=== PATIENT | female | born 1955 | race Caucasian/White ===

== ENCOUNTER 2016-05-16 09:33 | Inpatient (IN) | payer BC ==
--- NOTE | ~2016-05-16 | DS ---
Discharge Summary [facility] [address] [place]. [address] NAME: MARIBELL BRUNO : 51 STATUS : DIS IN PAT#: [id number] AGE: 60 ADM/REG DATE : 05/16/16 MR#: [id number] REPORT SERV DATE: 06/01/16 DICTATED BY: JIMMY BOBO DATE: 05/31/16 REPORT STATUS : Draft TRANSCRIBED BY: CHEYENNE DATE: 05/31/16 Data Collection from hospitalization DISCHARGE DIAGNOSIS(ES): 1. Relapsed lymphoma. 2. Anemia due to chemotherapy. 3. Pharyngitis. 4. Hypoxemia. 5. Leukocytosis - due to steroids and G-CSS. 6. Hypertension. 7. Glaucoma. CONSULTATIONS: Chase Butler M.D. PROCEDURES PERFORMED: None. MEDICATIONS: Zovirax 400 mg every 12 hours, ProAir two puffs via inhaler twice a day as needed, Elavil 25 mg at bedtime, Norvasc 5 mg every morning, Alphagan one drop twice a day, TUMS EX 1500 mg daily as needed, Colace 100 mg every morning, Breo Ellipta one puff via inhaler daily, Prinivil 10 mg twice a day, Imodium 2 mg before meals, Mag-Ox 800 mg daily, Lopressor 100 mg twice a day, probiotic one capsule every morning, Centrum tablets one tablet every morning, Zofran 8 mg every eight hours as needed, Compazine 10 mg every four hours as needed, bioidentical hormone one dose sublingually twice a day. CONDITION AT DISCHARGE: Stable. DISPOSITION: The patient was discharged home on a regular diet with activities as instructed. She would follow up with Dr. Chase Butler four to six weeks following discharge. She would follow up with me following discharge for a Neulasta injection. HOSPITAL COURSE: This is a 60-year-old female, who has relapsed large B-cell lymphoma after starting cycle 1 R-DHAP on 04/24/2016. She has Dr. Trevino on 04/18/2016, to discuss salvage chemotherapy and blood cell transplant management. The patient has a bulky mediastinal/hilar disease and no B symptoms stage IIA, but with positive flow cytometry of the bone marrow, but the bone marrow is histologically negative. She was going to undergo cycle #2 of DHAP. She received Rituxan in the office on 05/15/2016. She had no complaints of shortness of breath or chest pain. Her diarrhea had improved with Imodium as needed. She was admitted to the hospital at this time for further evaluation and treatment. Upon admission, cisplatin was decreased 25% due to acute renal insufficiency with cycle 1. Magnesium and creatinine would be monitored. The following day, she had no shortness of breath or chest pain. She did complain of having a sore throat, but was able to eat okay. She had no chest pain or shortness of breath. Cycle 2 DHAP continued. She was tolerating this well. White count was elevated due to recent steroids. She does have anemia felt due to chemotherapy. She would be transfused as needed. She has mild pharyngitis. On the , she did complain of some shortness of breath and a cough/wheeze. She had scant clear sputum production. She had no subscapular chest pain or pleurisy. She said she was feeling better that morning. Chemotherapy treatment continued. Her shortness of breath, hypoxemia, Discharge Summary [address] [address] NAME: MARIBELL BRUNO : 51 STATUS : DIS IN PAT#: [id number] AGE: 60 ADM/REG DATE : 05/16/16 MR#: [id number] REPORT SERV DATE: 06/01/16 DICTATED BY: JIMMY BOBO DATE: 05/31/16 REPORT STATUS : Draft TRANSCRIBED BY: CHEYENNE DATE: 05/31/16 and wheeze were suspected due to radiation reaction to cisplatin. Nebulizers and Lasix would be given as needed. Pharyngitis was improving. On the , she did complain of some shortness of breath. She had a nonproductive cough. She had no chest pain. Chemotherapy treatment continued. She does have bilateral lung infiltrates. BNP was elevated and echocardiogram was going to be checked. She was seen by Dr. Chase Butler regarding hypoxemia and pulmonary infiltrates. Her creatinine level was 1.56. White count was 22.6. It was felt that the patient likely had pulmonary edema secondary to the segundo-C based on the serial films and timing of the event with her chemotherapy. Oxygen would be provided as needed to maintain saturations in the 90-94% range. The patient felt like there was clinical benefit from the albuterol, so this was continued. Tessalon Perles would be provided for cough. We would hold on aggressive diuresis since this was more of a capillary leak. The patient already has some renal insufficiency after the cisplatin. The patient does have clinical symptoms of obstructive sleep apnea, which would be evaluated as an outpatient. Prinivil was held. Ionized calcium and phosphorus levels were going to be checked. Blood pressure was currently adequately controlled. Hydralazine would be given as needed for blood pressure more than 140. Echocardiogram demonstrated subc-[id number]-[id number] valvular disease of both aortic and mitral valve, which would need to be followed in the future. It was felt that we may need to change Arixtra with the rise in creatinine. This would be re-evaluated the following day. On 05/20/2016, she was feeling better overall. She was afebrile. Her breathing had minimally improved. O2 saturation was better. She still had a cough with occasional white sputum production. O2 was continued. Diuretics were held. Creatinine level had increased. The leukocytosis was felt secondary to Neupogen. Potassium supplementation was given. The next day, she seemed to be doing better, but still had a cough. The cough frequency had decreased. Oxygenation had improved. She completed cycle 2 DHAP. Creatinine level had improved as well. Diuretics remained on hold. Potassium supplementation continued. Discharge planning was performed. On 05/22/2016, her lungs were clear. She said she was feeling better. O2 saturation was 98% on 2 L. Acute hypoxemic respiratory failure was resolving. She would be followed as an outpatient regarding possible obstructive sleep apnea. Magnesium supplementation was given. Discharge instructions were provided. Due to her improved and stable condition, she was discharged home with the above-stated instructions. Information collected by: Vivi Berrios I submit the above information as my discharge summary. TG/MODL Jimmy Bobo M.D. / [id number] CC: Olivia Maravilla M.D.
--- NOTE | ~2016-05-16 | CN ---
Consultation Report [facility] [address] [place]. [address] NAME: MARIBELL JAY : 51 STATUS : ADM IN PAT#: [id number] AGE: 60 ADM/REG DATE : 05/16/16 MR#: [id number] REPORT SERV DATE: 05/19/16 DICTATED BY: CAROLINA BUTLER IV DATE: 05/19/16 REPORT STATUS : Draft TRANSCRIBED BY: MODBrooks DATE: 05/19/16 PULMONARY CONSULTATION. DATE OF CONSULTATION: 05/19/2016 REASON FOR REQUEST: Hypoxemia and pulmonary infiltrates. HISTORY OF PRESENT ILLNESS: History was obtained from the records and from the patient. Ms. Jay is a 60-year-old female with a history of recurrent large B-cell lymphoma, hypertension, glaucoma, now receiving her second cycle of R-DHAP with increased respiratory distress, hypoxemia, and pulmonary infiltrates. The patient was diagnosed with recurrent disease in 03/2016. As part of her treatment, she has received a chemotherapy regimen as noted with R-DHAP. She received her first cycle in April, which was complicated by hypoxemia, pulmonary infiltrates, and shortness of breath. Following the chest radiographs, there is a marked improvement in predominantly interstitial infiltrates with possibly some small pleural effusions that improved over two days and on a PICC line. X-ray on 05/16 demonstrated clearance of the pulmonary infiltrates. The patient received another cycle and within six hours of receiving her segundo-C developed increased shortness of breath, cough productive of white phlegm, and hypoxemia. Chest radiograph from the demonstrated some recurrence of the bilateral interstitial infiltrates, however, still is significantly improved from the original study in April. The patient had increased oxygen needs that have improved, however, she is concerned that this episode is more delayed than the previous episode. There were no exposure to any organic or chemical exposures prior to her presentation. There was no other medications provided. She denied any retrosternal or pleuritic chest pain. There was no fevers, chills, sweats, or hemoptysis. She is not on supplemental oxygen as an outpatient nor is she on bronchodilator medications. The patient does relate that she snores and her bed partner notes intermittent apneic episodes. She allows herself seven to eight hours of sleep every evening. Sleep is initially relatively restorative, however, she complains of sedentary hypersomnolence. PULMONARY HISTORY: Remarkable for no history of childhood asthma. She did have an episode of aspiration in her early 20s with no clear residual. She has had pneumonia in the past. She is a nonsmoker with no significant secondary smoke exposure. 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 PAST MEDICAL HISTORY: 1. Recurrent large B-cell lymphoma. 2. Hypertension. 3. Glaucoma. SURGERIES: She has had multiple laser surgeries for her eyes. She has had a right hip replacement, a hysterectomy with oophorectomy, an appendectomy, a left knee arthroscopy, and a rectal fissure repair. Consultation Report [place] [id number] [facility] [place]. [address] NAME: MARIBELL JAY : 51 STATUS : ADM IN [facility]#: [id number] AGE: 60 ADM/REG DATE : 05/16/16 MR#: [id number] REPORT SERV DATE: 05/19/16 DICTATED BY: CAROLINA BUTLER IV DATE: 05/19/16 REPORT STATUS : Draft TRANSCRIBED BY: CHEYENNE DATE: 05/19/16 ALLERGIES: DEMEROL, SHE IS INTOLERANT FROM LOW BLOOD PRESSURE, AND SHE HAS AN EGG ALLERGY. CURRENT MEDICATIONS: The patient is on Arixtra 2.5 mg subcu daily, Benadryl 25 mg as directed, brimonidine ophthalmologic solution one drop both eyes daily, Colace 100 mg daily, Elavil 25 mg at bedtime, Florastor one daily, Granix 300 mcg daily, Imodium before meals, Lopressor 100 mg twice a day, Mag-Ox 400 mg daily, MD Curry four times a day, Norvasc 5 mg daily, Prinivil 10 mg twice a day, Protonix 40 mg IV daily, Proventil every four hours, Senokot two daily, multivitamin daily, Tylenol daily, Zovirax 400 mg every 12 hours. SOCIAL HISTORY: Remarkable for no tobacco use. She has rare social alcohol use and she smoked some marijuana as a young adult. She has a partner with no children. FAMILY HISTORY: Remarkable for mother with breast cancer, hypothyroidism, and cardiovascular disease; father with cardiovascular disease; maternal grandmother who had leukemia; maternal grandfather who had congestive heart failure; and paternal grandfather who had a stroke. REVIEW OF SYSTEMS: 14 systems reviewed and pertinent positives noted above. PHYSICAL EXAMINATION: GENERAL: This is a pleasant, moderately overweight, late middle-aged, female, in no current distress. She is wearing supplemental oxygen. VITAL SIGNS: Temperature is 98.3, pulse is 91, respiratory rate is 18, saturations are 96% on 5 L, blood pressure is 124/67. HEENT: The patient is normocephalic, atraumatic. Extraocular movements are intact. Pupils react to light. Sclerae and conjunctivae normal. She has a nasal cannula in place. She has a Mallampati II to III airway with narrowing of the posterior pharyngeal space and elongated soft palate. No other gross oral lesions are noted. NECK: Without any palpable lymphadenopathy or thyromegaly. CHEST: The patient has anterior inspiratory crackles and squeaks. There are some inspiratory crackles posteriorly at the base that causes a cough with deep inspiratory efforts. No wheezes or rhonchi are noted. CARDIOVASCULAR: Jugular venous pulsations only appear to be approximately 6 cm. She has 2+ carotid upstrokes. No obvious bruit. She has regular S1, S2 with no clear murmur or S3. Peripheral pulses are intact. ABDOMEN: Surgical scars noted, protuberant, soft. There are hypoactive bowel sounds. There is no palpable hepatosplenomegaly or masses. EXTREMITIES: Demonstrate a PICC in her left arm. There is no cyanosis, clubbing, or palpable cords. NEUROLOGIC: The patient is able to move all extremities. Strength is 5/5 and sensation intact to light touch. LABORATORY STUDIES: Review of serial chest x-rays demonstrates infiltrates in April that resolved on the 05/16 study with a recurrent of the interstitial infiltrate on the 05/18 Consultation Report [place] [id number] [facility] [place]. [address] NAME: MARIBELL JAY : 51 STATUS : ADM IN [facility]#: [id number] AGE: 60 ADM/REG DATE : 05/16/16 MR#: [id number] REPORT SERV DATE: 05/19/16 DICTATED BY: CAROLINA BUTLER IV DATE: 05/19/16 REPORT STATUS : Draft TRANSCRIBED BY: CHEYENNE DATE: 05/19/16 study. Current CBC; hemoglobin 9.8, hematocrit 27.5, platelet count was 308,000, white count 22.6. Chemistries: Sodium 139, potassium 3.9, chloride 103, bicarb 22, BUN 45, creatinine 1.56, glucose 134, calcium is 6.8, and magnesium is 2. BNP was 925. ASSESSMENT AND PLAN: 1. Respiratory. The patient likely has pulmonary edema secondary to the segundo-C based on the serial films and timing of the event with her chemotherapy. Oxygen will be provided as needed to maintain saturation in the 90% to 94% range. The patient feels there is clinical benefit from the albuterol, so will continue q.4 hours while awake and q.2 hours as needed. A Tessalon Perles will be provided for cough. I would hold aggressive diuresis since this is more of a capillary leak, and the patient already has some renal insufficiency after the cisplatin. The patient does have clinical symptoms of obstructive sleep apnea, which I would evaluate as an outpatient. 2. Renal. We will hold the patient's Prinivil with a rise in creatinine. Ionized calcium and phos will be obtained tomorrow. 3. Cardiovascular. Blood pressure is currently adequately controlled. We will hold Prinivil and give hydralazine as needed for blood pressures more than 140. We will continue the other medications. She does have the echocardiogram demonstrating mild-to- moderate valvular disease of both aortic and mitral valve, which will need to be followed in the future. 4. Hematologic. May need to change Arixtra with a rise in creatinine, though will evaluate tomorrow. Thank you for consulting us. We will follow the patient with you. I personally discussed my opinion with Dr. Soriano. ASHLY/MODL Carolina Butler IV, M.D. / [id number] CC: Olivia Maravilla M.D.
[~2016-05-16 09:33] MED LIST: ADVIL PO; ALPHAGAN OPH; ALPHAGAN P0.1 % OPH; AMB5 PO; AMIT25 PO; BACDS PO; BIOIDENTICAL HORMONE SL; CEFT5 PO; DEX4 PO; DEXAMETHASONE OPH; DHE1; DHE1 PO; DSS PO; HERBAL SUPPLEMENT PO; LOP100 PO; LOP50 PO; MAGIC MOUTHWASH PO; MAX25 PO; MULTIPLE VIT PO; NORV5 PO; OTC STOOL SOFTENER PO; PEP20 PO; PR25 PO; PRIN10 PO; PRIN20 PO; PROAIR HFA INH; PROBIOTIC PO; PROVHFA INH; ZOFRAN ODT4 MG PO; ZOVIRAX400 MG PO; [UNRECOGNIZED DRUG - CODE] PO; [UNRECOGNIZED DRUG - OTHER] PO; [UNRECOGNIZED DRUG - OTHER] PO; [UNRECOGNIZED DRUG - OTHER] PO
[2016-05-16 11:25] LABS: HEMATOCRIT 30.1 % (36.0-48.0); HEMOGLOBIN 10.1 g/dL (12.0-16.0); MANUAL DIFF YES %; MEAN CORPUS HGB CONC 33.6 g/dL (32.0-36.0); MEAN CORPUSCULAR HEMOGLOB 29.7 pg (26.0-34.0); MEAN CORPUSCULAR VOLUME 88.5 fL (80-100); MEAN PLATELET VOLUME 10.1 fL (9.2-13.0); PLATELET COUNT 333 10/3/uL (150-400); RBC DISTRIBUTION WIDTH 13.5 % (12.0-16.0); WHITE BLOOD CELLS 23.5 10/3/uL (4.5-10.5)
[2016-05-16 11:35] LABS: BUN (BLOOD UREA NITROGEN) 19 MG/DL (6-23); CHLORIDE, SERUM 105 MMOL/L (96-112); CO2 (CARBON DIOXIDE) 26 MMOL/L (24-34); CREATININE 0.95 MG/DL (0.55-1.02); GFR AFRICAN AMERICAN 74 ML/MIN (>=60); GFR NON AFRICAN AMERICAN 64 ML/MIN (>=60); GLUCOSE, SERUM 104 MG/DL (60-99); POTASSIUM, SERUM 4.1 MMOL/L (3.5-5.3); SODIUM, SERUM 140 MMOL/L (135-148)
[2016-05-16 11:50] LABS: BAND NEUTROPHILS 10 %; BASOPHILS 2 %; BASOPHILS ABSOLUTE (CALC) 0.71 10/3/uL (0.0-0.16); IMMATURE GRANS ABSOLUTE (CALC) 0.71 10/3/uL (0.0-0.11); LYMPHOCYTES 7 %; LYMPHOCYTES ABSOLUTE (CALC) 1.65 10/3/uL (0.67-4.30); METAMYELOCYTES 3 %; MONOCYTES 8 %; MONOCYTES ABSOLUTE (CALC) 1.88 10/3/uL (0.21-1.20); NEUTROPHILS ABSOLUTE (CALC) 18.57 10/3/uL (2.02-8.40); SEGMENTED NEUTROPHIL (0) 70 %; TOTAL NUCLEATED CELLS 100
[2016-05-16 11:51] LABS: PLATELET ESTIMATE ADQ (ADEQUATE); RBC MORPHOLOGY NORM (NORMAL)
[2016-05-16] MEDS ORDERED: MAGOX4 PO (11:56)
[2016-05-16] MEDS ORDERED: IMOD PO (11:57)
[2016-05-16] MEDS ORDERED: RITUXAN IV (11:59)
[2016-05-16] MEDS ORDERED: ZOFRAN8 PO (12:00)
[2016-05-16] MEDS ORDERED: COMP10B PO (12:00)
[2016-05-16] MEDS ORDERED: BIOIDENTICAL HORMONE SL (12:02)
[2016-05-16] MEDS ORDERED: ZOVIRAX400 MG PO (12:03)
[2016-05-16] MEDS ORDERED: PROAIR HFA INH (12:04)
[2016-05-16] MEDS ORDERED: ALPHAGAN P0.1 % OPH (12:05)
[2016-05-16] MEDS ORDERED: AMIT25 PO (12:05)
[2016-05-16] MEDS ORDERED: DSS PO (12:07)
[2016-05-16] MEDS ORDERED: PRIN10 PO (12:08)
[2016-05-16] MEDS ORDERED: LOP50 PO (12:09)
[2016-05-16] MEDS ORDERED: NORV5 PO (12:09)
[2016-05-16] MEDS ORDERED: PROBIOTIC PO (12:10)
[2016-05-16] MEDS ORDERED: CENTRUM PO (12:10)
[2016-05-16] MEDS ORDERED: TUMS E-X750 M2 PO (12:11)
[2016-05-16] MEDS ORDERED: CHEMO THERAPY IV (12:14)
[2016-05-16] MEDS ORDERED: LEVAQUIN PO (12:19)
[2016-05-17 04:31] LABS: BUN (BLOOD UREA NITROGEN) 20 MG/DL (6-23); CHLORIDE, SERUM 107 MMOL/L (96-112); CO2 (CARBON DIOXIDE) 25 MMOL/L (24-34); GFR AFRICAN AMERICAN 70 ML/MIN (>=60); GFR NON AFRICAN AMERICAN 60 ML/MIN (>=60); POTASSIUM, SERUM 4.5 MMOL/L (3.5-5.3); SODIUM, SERUM 140 MMOL/L (135-148)
[2016-05-17 04:32] LABS: HEMATOCRIT 27.7 % (36.0-48.0); HEMOGLOBIN 9.6 g/dL (12.0-16.0); MEAN CORPUS HGB CONC 34.7 g/dL (32.0-36.0); MEAN CORPUSCULAR HEMOGLOB 30.5 pg (26.0-34.0); MEAN CORPUSCULAR VOLUME 87.9 fL (80-100); MEAN PLATELET VOLUME 9.9 fL (9.2-13.0); PLATELET COUNT 319 10/3/uL (150-400); RBC DISTRIBUTION WIDTH 13.4 % (12.0-16.0); RED CELL COUNT 3.15 10/6/uL (4.0-5.6)
[2016-05-17 04:33] LABS: MANUAL DIFF YES %; WHITE BLOOD CELLS 30.5 10/3/uL (4.5-10.5)
[2016-05-17 04:37] LABS: GLUCOSE, SERUM 164 MG/DL (60-99)
[2016-05-17 05:00] LABS: BAND NEUTROPHILS 5 %; IMMATURE GRANS ABSOLUTE (CALC) 1.53 10/3/uL (0.0-0.11); METAMYELOCYTES 5 %; MONOCYTES 4 %; MONOCYTES ABSOLUTE (CALC) 1.22 10/3/uL (0.21-1.20); NEUTROPHILS ABSOLUTE (CALC) 27.76 10/3/uL (2.02-8.40); PLATELET ESTIMATE ADQ (ADEQUATE); RBC MORPHOLOGY NORM (NORMAL); SEGMENTED NEUTROPHIL (0) 86 %; TOTAL NUCLEATED CELLS 100
[2016-05-18 04:17] LABS: HEMATOCRIT 27.9 % (36.0-48.0); HEMOGLOBIN 9.4 g/dL (12.0-16.0); MEAN CORPUS HGB CONC 33.7 g/dL (32.0-36.0); MEAN CORPUSCULAR VOLUME 89.1 fL (80-100); MEAN PLATELET VOLUME 10.2 fL (9.2-13.0); PLATELET COUNT 337 10/3/uL (150-400); RBC DISTRIBUTION WIDTH 13.8 % (12.0-16.0); RED CELL COUNT 3.13 10/6/uL (4.0-5.6)
[2016-05-18 04:20] LABS: MANUAL DIFF YES %; WHITE BLOOD CELLS 38.4 10/3/uL (4.5-10.5)
[2016-05-18 04:42] LABS: BUN (BLOOD UREA NITROGEN) 28 MG/DL (6-23); CALCIUM, SERUM 7.5 MG/DL (8.5-10.4); CHLORIDE, SERUM 107 MMOL/L (96-112); CO2 (CARBON DIOXIDE) 25 MMOL/L (24-34); CREATININE 1.19 MG/DL (0.55-1.02); GFR AFRICAN AMERICAN 57 ML/MIN (>=60); GFR NON AFRICAN AMERICAN 49 ML/MIN (>=60); GLUCOSE, SERUM 177 MG/DL (60-99); SODIUM, SERUM 140 MMOL/L (135-148)
[2016-05-18 05:24] LABS: BAND NEUTROPHILS 4 %; MONOCYTES 1 %; MONOCYTES ABSOLUTE (CALC) 0.38 10/3/uL (0.21-1.20); NEUTROPHILS ABSOLUTE (CALC) 38.02 10/3/uL (2.02-8.40); PLATELET ESTIMATE ADQ (ADEQUATE); RBC MORPHOLOGY NORM (NORMAL); SEGMENTED NEUTROPHIL (0) 95 %; TOTAL NUCLEATED CELLS 100
[2016-05-19 06:46] LABS: HEMATOCRIT 27.5 % (36.0-48.0); HEMOGLOBIN 9.8 g/dL (12.0-16.0); MEAN CORPUSCULAR HEMOGLOB 31.1 pg (26.0-34.0); MEAN CORPUSCULAR VOLUME 87.3 fL (80-100); MEAN PLATELET VOLUME 9.8 fL (9.2-13.0); PLATELET COUNT 308 10/3/uL (150-400); RBC DISTRIBUTION WIDTH 13.9 % (12.0-16.0); RED CELL COUNT 3.15 10/6/uL (4.0-5.6)
[2016-05-19 06:48] LABS: MANUAL DIFF YES %; MEAN CORPUS HGB CONC 35.6 g/dL (32.0-36.0); WHITE BLOOD CELLS 22.6 10/3/uL (4.5-10.5)
[2016-05-19 07:01] LABS: CHLORIDE, SERUM 103 MMOL/L (96-112); CO2 (CARBON DIOXIDE) 22 MMOL/L (24-34); CREATININE 1.56 MG/DL (0.55-1.02); GFR AFRICAN AMERICAN 41 ML/MIN (>=60); GFR NON AFRICAN AMERICAN 35 ML/MIN (>=60); POTASSIUM, SERUM 3.9 MMOL/L (3.5-5.3); SODIUM, SERUM 139 MMOL/L (135-148)
[2016-05-19 07:03] LABS: BUN (BLOOD UREA NITROGEN) 45 MG/DL (6-23); CALCIUM, SERUM 6.8 MG/DL (8.5-10.4); GLUCOSE, SERUM 134 MG/DL (60-99)
[2016-05-19 07:33] LABS: BAND NEUTROPHILS 11 %; LYMPHOCYTES 3 %; LYMPHOCYTES ABSOLUTE (CALC) 0.68 10/3/uL (0.67-4.30); MONOCYTES 5 %; MONOCYTES ABSOLUTE (CALC) 1.13 10/3/uL (0.21-1.20); NEUTROPHILS ABSOLUTE (CALC) 20.79 10/3/uL (2.02-8.40); PLATELET ESTIMATE ADQ (ADEQUATE); RBC MORPHOLOGY NORM (NORMAL); SEGMENTED NEUTROPHIL (0) 81 %; TOTAL NUCLEATED CELLS 100
[2016-05-20 05:22] LABS: ALKALINE PHOSPHATASE 88 U/L (45-117); BUN (BLOOD UREA NITROGEN) 47 MG/DL (6-23); CHLORIDE, SERUM 100 MMOL/L (96-112); CO2 (CARBON DIOXIDE) 26 MMOL/L (24-34); CREATININE 1.61 MG/DL (0.55-1.02); GFR AFRICAN AMERICAN 39 ML/MIN (>=60); GFR NON AFRICAN AMERICAN 34 ML/MIN (>=60); GLUCOSE, SERUM 124 MG/DL (60-99); POTASSIUM, SERUM 3.9 MMOL/L (3.5-5.3); SGOT(AST) 31 U/L (5-40); SGPT(ALT) 24 U/L (5-65); SODIUM, SERUM 140 MMOL/L (135-148); TOTAL PROTEIN 6.2 G/DL (6.0-8.5)
[2016-05-20 05:29] LABS: A/G RATIO 0.9 (0.7-1.9); CALCIUM, SERUM 6.5 MG/DL (8.5-10.4); GLOBULIN 3.2 G/DL (2.5-4.1); PHOSPHORUS, SERUM 3.4 MG/DL (2.5-4.5); TOTAL BILIRUBIN 0.5 MG/DL (0-1.2)
[2016-05-20 05:34] LABS: HEMATOCRIT 27.6 % (36.0-48.0); HEMOGLOBIN 9.8 g/dL (12.0-16.0); MEAN CORPUS HGB CONC 35.5 g/dL (32.0-36.0); MEAN CORPUSCULAR HEMOGLOB 30.8 pg (26.0-34.0); MEAN CORPUSCULAR VOLUME 86.8 fL (80-100); MEAN PLATELET VOLUME 10.5 fL (9.2-13.0); PLATELET COUNT 267 10/3/uL (150-400); RBC DISTRIBUTION WIDTH 13.9 % (12.0-16.0); RED CELL COUNT 3.18 10/6/uL (4.0-5.6)
[2016-05-20 05:35] LABS: CALCIUM IONIZED 3.71 MG/DL (3.80-4.80)
[2016-05-20 05:37] LABS: MANUAL DIFF YES %; WHITE BLOOD CELLS 89.3 10/3/uL (4.5-10.5)
[2016-05-20 06:26] LABS: B NATRIURETIC PEPTIDE (BNP) 686.6 PG/ML (< 100.0)
[2016-05-20 06:27] LABS: BAND NEUTROPHILS 6 %; MONOCYTES 1 %; MONOCYTES ABSOLUTE (CALC) 0.89 10/3/uL (0.21-1.20); NEUTROPHILS ABSOLUTE (CALC) 88.41 10/3/uL (2.02-8.40); PLATELET ESTIMATE ADQ (ADEQUATE); RBC MORPHOLOGY NORM (NORMAL); SEGMENTED NEUTROPHIL (0) 93 %; TOTAL NUCLEATED CELLS 100
[2016-05-21 05:58] LABS: HEMATOCRIT 27.4 % (36.0-48.0); HEMOGLOBIN 9.7 g/dL (12.0-16.0); MEAN CORPUS HGB CONC 35.4 g/dL (32.0-36.0); MEAN CORPUSCULAR HEMOGLOB 31.1 pg (26.0-34.0); MEAN CORPUSCULAR VOLUME 87.8 fL (80-100); MEAN PLATELET VOLUME 10.4 fL (9.2-13.0); PLATELET COUNT 208 10/3/uL (150-400); RBC DISTRIBUTION WIDTH 14.2 % (12.0-16.0); RED CELL COUNT 3.12 10/6/uL (4.0-5.6)
[2016-05-21 05:59] LABS: MANUAL DIFF YES %
[2016-05-21 06:11] LABS: ALKALINE PHOSPHATASE 98 U/L (45-117); BUN (BLOOD UREA NITROGEN) 42 MG/DL (6-23); CHLORIDE, SERUM 100 MMOL/L (96-112); CO2 (CARBON DIOXIDE) 31 MMOL/L (24-34); CREATININE 1.44 MG/DL (0.55-1.02); GFR AFRICAN AMERICAN 45 ML/MIN (>=60); GFR NON AFRICAN AMERICAN 39 ML/MIN (>=60); GLOBULIN 2.9 G/DL (2.5-4.1); GLUCOSE, SERUM 89 MG/DL (60-99); PHOSPHORUS, SERUM 3.4 MG/DL (2.5-4.5); POTASSIUM, SERUM 3.2 MMOL/L (3.5-5.3); SGOT(AST) 29 U/L (5-40); SGPT(ALT) 25 U/L (5-65); SODIUM, SERUM 141 MMOL/L (135-148); TOTAL BILIRUBIN 0.5 MG/DL (0-1.2); TOTAL PROTEIN 5.9 G/DL (6.0-8.5)
[2016-05-21 06:12] LABS: CALCIUM, SERUM 6.7 MG/DL (8.5-10.4)
[2016-05-21 06:25] LABS: BAND NEUTROPHILS 2 %; SEGMENTED NEUTROPHIL (0) 98 %; TOTAL NUCLEATED CELLS 100
[2016-05-21 06:26] LABS: PLATELET ESTIMATE ADQ (ADEQUATE); RBC MORPHOLOGY NORM (NORMAL)
[2016-05-22 06:10] LABS: HEMATOCRIT 24.9 % (36.0-48.0); MEAN CORPUS HGB CONC 36.1 g/dL (32.0-36.0); MEAN CORPUSCULAR HEMOGLOB 31.7 pg (26.0-34.0); MEAN CORPUSCULAR VOLUME 87.7 fL (80-100); MEAN PLATELET VOLUME 10.5 fL (9.2-13.0); RBC DISTRIBUTION WIDTH 13.9 % (12.0-16.0); RED CELL COUNT 2.84 10/6/uL (4.0-5.6)
[2016-05-22 06:12] LABS: MANUAL DIFF YES %; PLATELET COUNT 131 10/3/uL (150-400)
[2016-05-22 06:25] LABS: ALBUMIN 2.7 G/DL (3.5-5.0); ALKALINE PHOSPHATASE 95 U/L (45-117); CHLORIDE, SERUM 103 MMOL/L (96-112); CO2 (CARBON DIOXIDE) 27 MMOL/L (24-34); CREATININE 1.22 MG/DL (0.55-1.02); GFR AFRICAN AMERICAN 55 ML/MIN (>=60); GFR NON AFRICAN AMERICAN 47 ML/MIN (>=60); GLOBULIN 2.7 G/DL (2.5-4.1); GLUCOSE, SERUM 84 MG/DL (60-99); POTASSIUM, SERUM 3.4 MMOL/L (3.5-5.3); SGOT(AST) 21 U/L (5-40); SGPT(ALT) 24 U/L (5-65); SODIUM, SERUM 141 MMOL/L (135-148); TOTAL BILIRUBIN 0.7 MG/DL (0-1.2); TOTAL PROTEIN 5.4 G/DL (6.0-8.5)
[2016-05-22 06:26] LABS: BUN (BLOOD UREA NITROGEN) 37 MG/DL (6-23)
[2016-05-22 08:06] LABS: BAND NEUTROPHILS 6 %; MONOCYTES 1 %; MONOCYTES ABSOLUTE (CALC) 0.67 10/3/uL (0.21-1.20); NEUTROPHILS ABSOLUTE (CALC) 66.33 10/3/uL (2.02-8.40); PLATELET ESTIMATE DEC (ADEQUATE); SEGMENTED NEUTROPHIL (0) 93 %; TOTAL NUCLEATED CELLS 100
[2016-05-22 08:07] LABS: RBC MORPHOLOGY NORM (NORMAL)
[2016-05-22] MEDS ORDERED: MAGOX4 PO (11:12)
[2016-05-22] MEDS ORDERED: BREO ELLIPTA 21 EACH INH (11:19)
[2016-06-15] MEDS ORDERED: IND25 PO (09:16)
== END 2016-05-22 15:45 | disposition home or self-care (01) | DRG 846 ==
LOC: 4EA 09:33
PROVIDERS: Internal Medicine Critical Care Medicine; Internal Medicine Hematology & Oncology
DX: Z51.11 Encounter for antineoplastic chemotherapy (principal); J96.01 Acute respiratory failure with hypoxia; C83.32 Diffuse large B-cell lymphoma, intrathoracic lymph nodes; N17.9 Acute kidney failure, unspecified; D64.9 Anemia, unspecified; J02.9 Acute pharyngitis, unspecified; E83.42 Hypomagnesemia; J70.2 Acute drug-induced interstitial lung disorders; T45.1X5A Adverse effect of antineoplastic and immunosuppressive drugs, initial encounter
CPT/HCPCS: 71020; 80048; 80053; 80069; 82330; 83735; 83880; 84100; 85025; 93306; 94640; A9270-GY; C9113; J0610; J1447; J1652; J1940; J2405; J2997; J9060; J9100

== ENCOUNTER 2016-06-16 06:43 | Day surgery (SDC) | payer BC ==
--- NOTE | ~2016-06-16 | OP ---
Record Of Operation [facility] [address] [place]. [address] NAME: MARIBELL BRUNO : 51 STATUS : [facility]#: [id number] AGE: 60 ADM/REG DATE : 06/16/16 MR#: [id number] REPORT SERV DATE: 06/16/16 DICTATED BY: CAROLINA BUTLER IV DATE: 06/16/16 REPORT STATUS : Draft TRANSCRIBED BY: CHEYENNE DATE: 06/16/16 DATE OF PROCEDURE: 06/16/2016 BRONCHOSCOPY PROCEDURE NOTE PREOPERATIVE DIAGNOSIS: B-cell lymphoma with infiltrate in the left lower lobe presumed to be pneumonia, however, with persistent fevers after treatment with antibiotics. POSTOPERATIVE DIAGNOSIS: B-cell lymphoma with infiltrate in the left lower lobe presumed to be pneumonia, however, with persistent fevers after treatment with antibiotics with initial review of the slide nondiagnostic material. PROCEDURE: Bronchoscopy with radial EBUS, BAL, brush and biopsies of a right persistent left lower lobe infiltrate with persistent fevers and B-cell lymphoma. CONTRAINDICATIONS: None. CONSENT: The risks, benefits, and alternative evaluations were discussed with the patient. Possible complications reviewed to include air leak around the lung, bleeding, infection, low oxygen level, and even potentially . The patient agreed to procedure with the consent signed, and witnessed on the front of the chart. PREOPERATIVE LABS: The patient's INR was 1.1. The platelet count was 225,000. METHOD: The patient was taken to the bronchoscopy suite of [facility] and prepared in the usual manner. Anesthesiology was consulted to provide airway management as well as sedation. This was provided via an LMA airway. Once the patient was sedated and the airway was secured, the bronchoscope was advanced down the LMA without difficulty. The LMA was positioned appropriately over the vocal cords. A total of 20 mL of 2% lidocaine solution was used throughout the procedure to provide airway anesthesia. The airway mucosa was diffusely boggy and edematous. There was a fair dynamic narrowing of the airways with coughing. There was normal anatomy with all airways patent out beyond the fourth generation bronchi. After all airways were evaluated, the bronchoscope was advanced down to the posterior segment of the left lower lobe. Using radial EBUS, the appropriate subsegments were located. A BAL was then performed instituting 180 mL with return of over 60 mL of slightly sanguineous material. This was sent for cultures as well as cytology. A brush was then provided in the two subsegments in the appropriate area and sent for cytology. Initial review demonstrated nondiagnostic material with benign bronchial mucosa in histiocytes though no obvious inflammatory cells. All procedures were performed under fluoroscopic guidance. Two biopsies were obtained in the two different subsegments in the appropriate area and sent for culture. Additional five more biopsies were obtained in these two subsegments and sent for cytology. The patient tolerated the procedure well with adequate oxygenation. The repeat BAL was performed at the conclusion of the procedure and sent for cytology as well as for culture. Fluoroscopy failed to demonstrate any pneumothorax. The patient tolerated the procedure well. She will be moved to recovery. The family member will be made aware of the preliminary results. Record Of [address] [place]. [address] NAME: MARIBELL BRUNO : 51 STATUS : [facility] PAT#: [id number] AGE: 60 ADM/REG DATE : 06/16/16 MR#: [id number] REPORT SERV DATE: 06/16/16 DICTATED BY: CAROLINA BUTLER IV DATE: 06/16/16 REPORT STATUS : Draft TRANSCRIBED BY: CHEYENNE DATE: 06/16/16 ASHLY/CHEYENNE Carolina Butler IV, M.D. / [id number] CC: Olivia Dacosta IV, M.D.
[~2016-06-16 06:43] MED LIST changes: +BREO ELLIPTA 21 EACH INH; +CENTRUM PO; +CHEMO THERAPY IV; +COMP10B PO; +IMOD PO; +IND25 PO; +LEVAQUIN PO; +MAGOX4 PO; +RITUXAN IV; +TUMS E-X750 M2 PO; +ZOFRAN8 PO
[2016-06-16 07:02] LABS: BASOPHILS 0.9 %; BASOPHILS ABSOLUTE 0.06 10/3/uL (0.0-0.16); EOSINOPHILS ABSOLUTE 0.28 10/3/uL (0.0-0.53); HEMOGLOBIN 9.3 g/dL (12.0-16.0); IMMATURE GRANULOCYTES 1.1 %; IMMATURE GRANULOCYTES ABSOLUTE 0.08 10/3/uL (0.0-0.11); LYMPHOCYTES 15.5 %; LYMPHOCYTES ABSOLUTE 1.09 10/3/uL (0.67-4.30); MEAN CORPUS HGB CONC 34.4 g/dL (32.0-36.0); MEAN CORPUSCULAR HEMOGLOB 31.4 pg (26.0-34.0); MONOCYTES 13.5 %; MONOCYTES ABSOLUTE 0.95 10/3/uL (0.21-1.20); NEUTROPHILS ABSOLUTE 4.56 10/3/uL (2.02-8.40); RBC DISTRIBUTION WIDTH 15.2 % (12.0-16.0); RED CELL COUNT 2.96 10/6/uL (4.0-5.6)
[2016-06-16 07:07] LABS: MANUAL DIFF NO %; MEAN CORPUSCULAR VOLUME 91.2 fL (80-100); PLATELET COUNT 225 10/3/uL (150-400)
[2016-06-16 07:16] LABS: BUN (BLOOD UREA NITROGEN) 22 MG/DL (6-23); CALCIUM, SERUM 8.7 MG/DL (8.5-10.4); CHLORIDE, SERUM 107 MMOL/L (96-112); CO2 (CARBON DIOXIDE) 28 MMOL/L (24-34); CREATININE 1.03 MG/DL (0.55-1.02); GFR AFRICAN AMERICAN 67 ML/MIN (>=60); GFR NON AFRICAN AMERICAN 58 ML/MIN (>=60); GLUCOSE, SERUM 92 MG/DL (60-99); POTASSIUM, SERUM 4.1 MMOL/L (3.5-5.3); SODIUM, SERUM 141 MMOL/L (135-148)
[2016-06-16 07:25] LABS: INTERNATIONAL NORMAL RATI 1.1 UNITS (-); PARTIAL THROMBO TIME 31.5 SEC (22.5-37.2); PROTIME (NOT ORD) 14.1 SEC (12.0-14.5)
[2016-06-16 14:12] LABS: BD FL SOURCE (NOT ORD) BAL-LLL
[2016-06-16 14:13] LABS: BF TOTAL CELL CT (NOT ORD 333 /MM3; BODY FLUID RBC (NOT ORD) 9000 /MM3
[2016-06-16 14:47] LABS: BD FL LYMPH (NOT ORD) 3 %; BF BASO (NOT OF) 0 %; BF LARGE MONONUCLEAR 53 %; BODY FLUID EOS (NOT ORD) 1 %; BODY FLUID SEG (NOT ORD) 43 %
== END 2016-06-16 13:29 | disposition home or self-care (01) ==
LOC: DMU 06:43
PROVIDERS: Anesthesiology; Internal Medicine Critical Care Medicine
PROC: 0B9B8ZX Drainage of Left Lower Lobe Bronchus, Via Natural or Artificial Opening Endoscopic, Diagnostic (ICD-10-PCS; principal; 2016-06-16 08:00)
PROC: 0BBB8ZX Excision of Left Lower Lobe Bronchus, Via Natural or Artificial Opening Endoscopic, Diagnostic (ICD-10-PCS; 2016-06-16 08:00)
PROC: BB4CZZZ Ultrasonography of Mediastinum (ICD-10-PCS; 2016-06-16 08:00)
DX: R91.8 Other nonspecific abnormal finding of lung field (principal); R50.9 Fever, unspecified; J98.4 Other disorders of lung; C83.38 Diffuse large B-cell lymphoma, lymph nodes of multiple sites; I10 Essential (primary) hypertension; I08.3 Combined rheumatic disorders of mitral, aortic and tricuspid valves; G43.909 Migraine, unspecified, not intractable, without status migrainosus; M19.90 Unspecified osteoarthritis, unspecified site; H91.92 Unspecified hearing loss, left ear; H26.9 Unspecified cataract; D64.9 Anemia, unspecified; Z87.09 Personal history of other diseases of the respiratory system; Z88.0 Allergy status to penicillin; Z88.1 Allergy status to other antibiotic agents; Z88.2 Allergy status to sulfonamides; Z88.5 Allergy status to narcotic agent; Z91.041 Radiographic dye allergy status; Z91.012 Allergy to eggs; Z79.51 Long term (current) use of inhaled steroids; Z79.1 Long term (current) use of non-steroidal anti-inflammatories (NSAID); Z79.899 Other long term (current) drug therapy; Z87.01 Personal history of pneumonia (recurrent); Z96.649 Presence of unspecified artificial hip joint; Z87.81 Personal history of (healed) traumatic fracture; Z90.49 Acquired absence of other specified parts of digestive tract; Z90.710 Acquired absence of both cervix and uterus; Z98.890 Other specified postprocedural states; Z92.3 Personal history of irradiation
CPT/HCPCS: 71010; 80048; 85025; 85610; 85730; 87015; 87070; 87102; 87116; 87205; 88112; 88305; 88333; 89051; 93005; A9270-GY; J2250; J2270; J2370; J2405; J3010